=== PATIENT | male | born 1970 | race Caucasian/White ===

== ENCOUNTER 2016-10-13 08:21 | Day surgery (SDC) | payer OTHER ==
[2016-10-08 10:13] LABS: BASOPHILS 0.3 %; BASOPHILS ABSOLUTE 0.02 10/3/uL (0.0-0.16); EOSINOPHILS 1.6 %; HEMATOCRIT 41.5 % (40.0-51.0); HEMOGLOBIN 14.5 g/dL (13.6-17.8); IMMATURE GRANULOCYTES 0.2 %; IMMATURE GRANULOCYTES ABSOLUTE 0.01 10/3/uL (0.0-0.11); LYMPHOCYTES 34.9 %; LYMPHOCYTES ABSOLUTE 2.17 10/3/uL (0.67-4.30); MEAN CORPUS HGB CONC 34.9 g/dL (32.0-36.0); MEAN CORPUSCULAR HEMOGLOB 31.4 pg (26.0-34.0); MEAN CORPUSCULAR VOLUME 89.8 fL (80-100); MONOCYTES 12.1 %; MONOCYTES ABSOLUTE 0.75 10/3/uL (0.21-1.20); NEUTROPHILS 50.9 %; NEUTROPHILS ABSOLUTE 3.16 10/3/uL (2.02-8.40); PLATELET COUNT 277 10/3/uL (150-400); RED CELL COUNT 4.62 10/6/uL (4.7-6.1); WHITE BLOOD CELLS 6.2 10/3/uL (4.5-10.5)
[2016-10-08 10:14] LABS: MANUAL DIFF NO %
[2016-10-08 10:21] LABS: A/G RATIO 1.3 (0.7-1.9); ALBUMIN 3.9 G/DL (3.5-5.0); ALKALINE PHOSPHATASE 79 U/L (45-117); CALCIUM, SERUM 8.5 MG/DL (8.5-10.4); CHLORIDE, SERUM 106 MMOL/L (96-112); CO2 (CARBON DIOXIDE) 30 MMOL/L (24-34); GFR AFRICAN AMERICAN 117 ML/MIN (>=60); GFR NON AFRICAN AMERICAN 101 ML/MIN (>=60); GLUCOSE, SERUM 105 MG/DL (60-99); POTASSIUM, SERUM 3.8 MMOL/L (3.5-5.3); SGOT(AST) 27 U/L (5-40); SGPT(ALT) 50 U/L (5-65); SODIUM, SERUM 144 MMOL/L (135-148); TOTAL BILIRUBIN 0.5 MG/DL (0-1.2); TOTAL PROTEIN 6.9 G/DL (6.0-8.5)
[2016-10-08 10:22] LABS: BUN (BLOOD UREA NITROGEN) 10 MG/DL (6-23)
[2016-10-08 12:26] LABS: ASCORBIC ACID (UR NOT ORDER) NEG (NEG); BILIRUBIN, URINE NEGATIVE (NEG); KETONE, URINE NEGATIVE (NEG); LEUKOCYTE ESTERASE(NOT OR NEG (NEG); WBC (NOT ORDERED) (RFLEX) < 1 (0-5)
--- NOTE | ~2016-10-13 | OP ---
Record Of Operation [facility] [address] [place]. [address] NAME: PACHECO MCKENZIE : 68 STATUS : [facility]#: [id number] AGE: 46 ADM/REG DATE : 10/13/16 MR#: [id number] REPORT SERV DATE: 10/13/16 DICTATED BY: YASMIN JHAVERI DATE: 10/13/16 REPORT STATUS : Draft TRANSCRIBED BY: MODL DATE: 10/13/16 DATE OF PROCEDURE: 10/13/2016 PREOPERATIVE DIAGNOSIS: Biliary dyskinesia. POSTOPERATIVE DIAGNOSIS: Biliary dyskinesia. PROCEDURE: Laparoscopic cholecystectomy and intraoperative cholangiogram. SURGEON: Yasmin Jhaveri M.D. ANESTHESIA: General endotracheal. ESTIMATED BLOOD LOSS: Nil. FLUIDS: Crystalloid. SPECIMEN: Gallbladder. DRAINS: None. COMPLICATION: None. CONDITION: Good. INDICATIONS: Mr. Mckenzie is a 46-year-old, who has suffered from episodic bouts of epigastric right upper quadrant pressing abdominal pain going through to the right back with nausea. Some time ago he was diagnosed with biliary dyskinesia and after thorough review of risks, benefits, options, side effects, did not feel the symptoms were severe enough to want to pursue a cholecystectomy. However, over the last number of weeks to months, he has had an increasingly difficult time with symptoms and after re-review at this point, we would like to pursue cholecystectomy to get symptom relief. PROCEDURE IN DETAIL: After being identified in preop holding, he was brought to the OR, and positioned in supine. General endotracheal anesthesia was induced. A time-out was performed. The abdomen was prepped and draped sterilely. He received Ancef intravenously. Marcaine was infiltrated infraumbilical. A vertical skin incision was made. The skin was grasped with towel clips, elevated, and a Veress needle was inserted into the peritoneal cavity as confirmed by saline drop test. A 15 mm carbon dioxide pneumoperitoneum was created. The Veress needle was removed and a 5 mm trocar was inserted. A 30-degree laparoscope was inserted within the peritoneal cavity. There was no visceral injury. Intraabdominal content was inspected, appeared grossly normal. Mr. Mckenzie was positioned head up, foot down, rolled right side up, and after Marcaine infiltration, and appropriate skin incisions, 10 mm trocar was inserted subxiphoid, two 5 mm were inserted subcostally on the right in the midclavicular and anterior axillary lines. Gallbladder was grasped and elevated. There were adhesions to the underside to the infrahepatic fat and duodenum that Record Of Operation [facility] [address] [facility] [place]. [id number] NAME: PACHECO MCKENZIE : 68 STATUS : [facility] PAT#: [id number] AGE: 46 ADM/REG DATE : 10/13/16 MR#: [id number] REPORT SERV DATE: 10/13/16 DICTATED BY: YASMIN JHAVERI DATE: 10/13/16 REPORT STATUS : Draft TRANSCRIBED BY: MODL DATE: 10/13/16 were taken down with the laparoscopic scissors. No bowel injury was incurred. Peritoneal folds now to the neck of the gallbladder were identified, dissected open, and a small cystic duct egressing the gallbladder was identified, and dissected circumferential. The cystic duct was milked towards the gallbladder and an occlusive clip was then placed across the neck. A cystic ductotomy was made and cholangiogram catheter was inserted and anchored. Fluoroscopy was brought on the field. Cholangiography revealed a long, narrow, spiraling cystic duct coursed into a nondilated common bile duct with flow of contrast into duodenum. With additional contrast injection, there was opacification of proper hepatic duct, left and right hepatic duct, as well as the main pancreatic duct. There was no dilation, no filling defects, and prompt flow of contrast into the duodenum was readily evident. With an apparent normal study, fluoroscopy was taken off the field, and the laparoscopic instrumentation was reinserted. Gallbladder was re-retracted, cholangiocatheter was removed. The cystic duct was clipped occlusively x3 on the common duct side of cannulation and the cystic duct was divided at the point of cannulation. Now, carefully dissected in Calot's triangle, immediately posterior to the lymph node was a dominant cystic artery. This was dissected circumferential, clipped x3, divided between middle clip and gallbladder site. Next, used hook cautery to dissect the gallbladder out of gallbladder fossa. This went smoothly without getting into the liver or the gallbladder. Partway up the gallbladder fossa right lateral was a small accessory vessel that coursed directly into the gallbladder, this was clipped x2, near the edge of liver, and then cauterized, and divided as it entered the gallbladder. The gallbladder was then placed in an EndoCatch and extracted out the subxiphoid trocar path. Next, carefully suctioned all sub and suprahepatic fluid. There was good clip positioning. No bleeding. No evidence of bile leak. At this point, the upper abdominal trocars were removed with visualization through laparoscope, there was no bleeding. The abdomen was desufflated. The infraumbilical laparoscope and trocar were removed. The subxiphoid fascia was closed with a simple interrupted suture of 0 Vicryl. Dermis was closed in all incisions with 4-0 Monocryl, followed by Benzoin, Steri-Strips, and sterile dressing. Mr. Mckenzie tolerated the procedure well. He was recovered from his anesthetic, extubated, and transported to the recovery room in good and stable condition. SHAHRZAD/GABBI Yasmin Jhaveri M.D. / [id number] CC: Meek Orellana M.D.
[~2016-10-13 08:21] MED LIST: FLOMAX4 PO; PRILOSEC40 MG PO; PROSCAR5 PO
== END 2016-10-13 14:55 | disposition home or self-care (01) ==
LOC: SDC 08:21
PROVIDERS: Surgery
PROC: BF12YZZ Fluoroscopy of Gallbladder using Other Contrast (ICD-10-PCS; 2016-10-13)
PROC: 0FT44ZZ Resection of Gallbladder, Percutaneous Endoscopic Approach (ICD-10-PCS; principal; 2016-10-13 11:00)
DX: K81.1 Chronic cholecystitis (principal); K21.9 Gastro-esophageal reflux disease without esophagitis
CPT/HCPCS: 74300; 76000; 80053; 81001; 82150; 85025; 88304; A9270-GY; J0690; J1170; J2250; J2405; J2710; J3010; Q9967